=== PATIENT | male | born 1960 | race Two or more races ===

== ENCOUNTER 2020-12-26 10:52 | Emergency (ER) | payer OTHER ==
[~2020-12-26] VITALS: Ht 177.8 cm; Wt 95.3 kg
--- NOTE | 2020-12-26 10:52 | NUR ---
PT [id number] FROM [facility] FANTASMA C/O HIGH BLOOD SUGAR AND REQUESTING VOLUNTARY PSYCH ADMISSION DUE TO DEPRESSION. PT IS AAOX4, NOT IN RESPIRATORY DISTRESS, V/S STABLE, KEPT RESTED AND COMFORTABLE. WILL CONTINUE TO MONITOR.
--- NOTE | 2020-12-26 11:15 | NUR ---
PT SEEN AND EXAMINED BY .
--- NOTE | 2020-12-26 11:32 | NUR ---
ER PHLEB AT BEDSIDE FOR BLOOD DRAW.
--- NOTE | 2020-12-26 11:42 | NUR ---
URINAL GIVEN BUT UNABLE TO PROVIDE URINE SPECIMEN THIS TIME.
[2020-12-26 11:47] LABS: BASOPHILS % (AUTO) 0.4 % (0.0-2.0); EOSINOPHILS % (AUTO) 1.7 % (0.0-6.0); HEMATOCRIT 42 % (39-51); HEMOGLOBIN 13.9 g/dL (13.5-17.5); LYMPHOCYTES % (AUTO) 25.4 % (20.0-44.0); MEAN CORPUSCULAR HGB CONC 33 g/dl (31.0-36.0); MEAN CORPUSCULAR VOLUME 83 fL (80-96); MONOCYTES # (AUTO) 0.5 K/uL (0.1-1.30); MONOCYTES % (AUTO) 6.1 % (2.0-12.0); NEUTROPHILS # (AUTO) 5.2 K/uL (1.8-8.9); NEUTROPHILS % (AUTO) 66.4 % (43.0-81.0); PLATELET COUNT (AUTO) 332 K/uL (150-450); RED BLOOD CELL COUNT(AUTO) 5.13 MIL/uL (4.5-6.0); WHITE BLOOD COUNT (AUTO) 7.8 K/uL (4.3-11.0)
[2020-12-26 12:00] LABS: CALCIUM, SERUM 8.7 mg/dL (8.5-10.1); CARBON DIOXIDE 30 mmol/L (21-32); CHLORIDE 102 mmol/L (98-107); CREATININE 0.9 mg/dL (0.6-1.3); GLUCOSE 312 mg/dL (74-106); SODIUM SERUM 139 mmol/L (136-145); UREA NITROGEN, BLOOD 20 mg/dL (7-18)
[2020-12-26] MEDS ORDERED: IV NS 0.9% 500 ML BAG IV ONE (12:00)
[2020-12-26 12:06] LABS: ACETAMINOPHEN < 10 ug/ml (10-30); ALANINE AMINOTRANSFERASE 19 U/L (12-78); ALCOHOL, BLOOD < 3 mg/dL (0-0); ALKALINE PHOSPHATASE 87 U/L (46-116); ASPARTATE AMINOTRANSFERASE 13 U/L (15-37); BILIRUBIN,DIRECT 0.1 mg/dL (0.0-0.2); BILIRUBIN,TOTAL 0.2 mg/dL (0.2-1.0); TOTAL PROTEIN, SERUM 6.9 g/dL (6.4-8.2)
--- NOTE | 2020-12-26 12:26 | NUR ---
URINE SPECIMEN COLLECTED AND SENT TO LAB.
[2020-12-26 12:45] LABS: BILIRUBIN,URINE Negative (NEGATIVE); COLOR,URINE YELLOW (YELLOW); LEUKOCYTE ESTERASE ,URINE Negative (NEGATIVE); NITRITE, URINE Negative (NEGATIVE); PH,URINE 5.5 (5.0-8.0); PROTEIN,URINE Negative (NEGATIVE); UGLUCOSE >=1000 mg/dL (NEGATIVE)
[2020-12-26 12:57] LABS: BACTERIA,URINE Rare /HPF (None Seen); MUCUS,URINE Rare /LPF (None Seen); RBC,URINE NONE SEEN /HPF (0-2); WBC,URINE NONE SEEN /HPF (0-3)
[2020-12-26] MEDS ORDERED: INSULIN REGULAR, HUMAN 100 UNIT/ML 10 ML VIAL SQ ONE (13:30)
[2020-12-26] MEDS ORDERED: INSULIN REGULAR, HUMAN 100 UNIT/ML 10 ML VIAL ONE (13:34)
[2020-12-26] MEDS ORDERED: METFORMIN 500 MG TABLET ONE (17:44)
[2020-12-26] MEDS ORDERED: METFORMIN 500 MG TABLET PO ONE (18:00)
--- NOTE | 2020-12-26 22:17 | NUR ---
Pt accepted to [facility] by Dr Padilla unit 2 . # for report
--- NOTE | 2020-12-26 22:23 | NUR ---
PAPO AT [facility] GAVE ETA FOR TRANSPORT BETWEEN MIDNIGHT AND 0100.
--- NOTE | 2020-12-27 05:17 | NUR ---
Patient is resting comfortably in bed with eyes closed. Easily aroused. VSS
--- NOTE | 2020-12-27 07:55 | NUR ---
THE PATIENT IS RECEIVED IN ER BED #13. THE PATIENT IS ALERT AND ORIENTED X3. IN ROOM AIR AND DENIES SOB. RESPIRATION REGULAR AND UNLABORED. SITTER AT THE BEDSIDE. WILL CONTINUE TO MONITOR THE PATIENT.
--- NOTE | 2020-12-27 08:01 | NUR ---
THE PATIENT IS HAVING BREAKFAST
--- NOTE | 2020-12-27 08:38 | NUR ---
REPORT GIVEN TO NURSE MAYBERRY FROM [facility]
--- NOTE | 2020-12-27 09:00 | NUR ---
CALL THE CAR CALLED. [employer] 1100AM.
--- NOTE | 2020-12-27 09:11 | NUR ---
CALLED [facility] FOR TRANSPORT TO [facility]. ETA 90 MINUTES.
--- NOTE | 2020-12-27 11:20 | NUR ---
THE PATIENT IS PICKED UP VIA ARRANGED TRANSPO GOING TO [facility]. THE PATIENT IS IN STABLE CONDITION.
[2020-12-27 11:21] VITALS: BP 111/68
== END 2020-12-27 11:21 ==
LOC: ER 10:58
DX: E11.65 Type 2 diabetes mellitus with hyperglycemia (principal); F32.9 Major depressive disorder, single episode, unspecified; I10 Essential (primary) hypertension; Z82.49 Family history of ischemic heart disease and other diseases of the circulatory system; Z20.822 Contact with and (suspected) exposure to COVID-19
CPT/HCPCS: 36415; 80048; 80076; 80143; 80307; 80320; 81001; 82962 ×6; 85025; 87426; 96360; 96372; 99285; C9803; J1815; J7030; G0480

== ENCOUNTER 2020-12-27 12:57 | Emergency (ER) | payer OTHER ==
[~2020-12-27] VITALS: Ht 177.8 cm; Wt 95.3 kg
--- NOTE | 2020-12-27 13:08 | NUR ---
paged Dr. Ge, awaiting for md to call back.
--- NOTE | 2020-12-27 13:12 | NUR ---
IGOR MONDRAGON[facility] THE PATIENT IS ALERT AND ORIENTED X4. DENIES PAIN. IN ROOM AIR AND DENIES SOB. RESPIRATION REGULAR AND UNLABORED. THE WILL CONTINUE TO MONITOR THE PATIENT.
--- NOTE | 2020-12-27 13:44 | NUR ---
[facility] CALLED. WILL SEE PATIENT.
--- NOTE | 2020-12-27 15:07 | NUR ---
The patient alert and oriented x4. In room air and denies SOB. Respiration regular and unlabored. Denies pain. Denies SI/HI Patient discharged in stable condition. Written and verbal after care instructions given. Patient verbalizes understanding of instruction. The patient stated that he is going to a assisted.
[2020-12-27 15:08] VITALS: BP 116/85
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
== END 2020-12-27 15:08 | disposition home or self-care (01) ==
LOC: ER 13:08
DX: E11.65 Type 2 diabetes mellitus with hyperglycemia (principal); I10 Essential (primary) hypertension; F32.9 Major depressive disorder, single episode, unspecified; Z60.2 Problems related to living alone